=== PATIENT | female | born 1965 | race Caucasian/White ===

== ENCOUNTER 2017-07-05 11:07 | Day surgery (SDC) | payer OTHER ==
[~2017-07-05] VITALS: Ht 166.4 cm; Wt 119.7 kg
[~2017-07-05 11:07] MED LIST: AMARYL4 MG PO; FOLIC ACID1 MG PO; LASIX40 MG PO; LEVEMIR FL100 UNIT/1 SC; LEVOXYL88 MCG PO; LORATADINE10 M2 PO; LORCET HD 10-31 EACH PO; OMEPRAZOLE20 M2 PO; TRAZODONE HCL100 MG PO; VITAMIN D31000 UNI2 PO; XANAX2 MG PO; [UNRECOGNIZED DRUG - REMARK]
[2017-07-05 11:38] LABS: HEMATOCRIT 34.1 % (36.0-46.0); MCH 28.9 PG (29.0-34.0); MCHC 31.7 G/DL (30.0-36.0); MCV 91.2 FL (83-99); MEAN PLAT.VOLUME 11.4 uM^3 (9.5-12.4); PLATELET COUNT 240 K/uL (156-360); RBC DIS.WIDTH-CV 12.2 % (11.8-14.6); RBC DIS.WIDTH-SD 40.3 % (39-53); RED BLOOD COUNT 3.74 M/uL (3.80-5.20); WHITE BLOOD COUNT 8.7 K/uL (4.1-10.2)
[2017-07-05 11:47] LABS: CHLORIDE 101 mEq/L (99-109); POTASSIUM 3.4 mEq/L (3.7-5.4); SODIUM 140 mEq/L (136-147)
[2017-07-05 11:50] LABS: ANION GAP 10 MEQ/L (2-14); GLUCOSE 614 mg/dL (70-99)
[2017-07-05 11:52] LABS: GFR ESTIMATE (CALCULATED) 26 mL/min/
[2017-07-05 11:53] LABS: UREA NITROGEN (BUN) 26 mg/dL (9-23)
[2017-07-05 11:59] VITALS: BP 140/80
[2017-07-05 12:50] LABS: POINT-OF-CARE METER ID UU14174212
[2017-07-05 13:26] LABS: GLUCOSE 317 mg/dL (70-99)
[2017-07-05 14:32] LABS: POINT-OF-CARE METER ID UU14174212
[2017-07-05 15:41] LABS: POINT-OF-CARE METER ID UU14174212
[2017-07-05 17:31] LABS: POINT-OF-CARE METER ID UU13113675
[2017-07-05 18:30] VITALS: BP 166/73
[2017-07-05 19:45] VITALS: BP 127/65
[2017-07-07 20:47] LABS: POINT-OF-CARE METER ID UU14174212; POINT-OF-CARE USER ID AHSRSCSLC11
== END 2017-07-05 19:58 | disposition home or self-care (01) ==
LOC: SDC 11:07
PROVIDERS: Anesthesiology; Surgery
DX: I13.2 Hypertensive heart and chronic kidney disease with heart failure and with stage 5 chronic kidney disease, or end stage renal disease (principal); E11.22 Type 2 diabetes mellitus with diabetic chronic kidney disease; N18.5 Chronic kidney disease, stage 5; E11.21 Type 2 diabetes mellitus with diabetic nephropathy; E11.319 Type 2 diabetes mellitus with unspecified diabetic retinopathy without macular edema; Z79.4 Long term (current) use of insulin; I50.9 Heart failure, unspecified; G89.4 Chronic pain syndrome; E03.9 Hypothyroidism, unspecified; K21.9 Gastro-esophageal reflux disease without esophagitis; E66.01 Morbid (severe) obesity due to excess calories; F41.9 Anxiety disorder, unspecified; Z85.43 Personal history of malignant neoplasm of ovary; Z85.810 Personal history of malignant neoplasm of tongue; Z83.3 Family history of diabetes mellitus; Z82.0 Family history of epilepsy and other diseases of the nervous system; Z80.1 Family history of malignant neoplasm of trachea, bronchus and lung; Z88.5 Allergy status to narcotic agent; Z88.6 Allergy status to analgesic agent
CPT/HCPCS: 80048; 82948; 84999; 85027; 93005; J0690; J1170; J1644; J2250; J2720; J3010

== ENCOUNTER 2017-08-02 10:28 | Day surgery (SDC) | payer OTHER ==
[~2017-08-02] VITALS: Ht 165.1 cm; Wt 119.7 kg
[~2017-08-02 10:28] MED LIST changes: +TRULICITY0.75 MG/0. SC
[2017-08-02 11:04] VITALS: BP 143/73
[2017-08-02 11:14] LABS: HEMATOCRIT 33.6 % (36.0-46.0); MCH 28.4 PG (29.0-34.0); MCHC 31.8 G/DL (30.0-36.0); MCV 89.1 FL (83-99); MEAN PLAT.VOLUME 10.8 uM^3 (9.5-12.4); PLATELET COUNT 232 K/uL (156-360); RBC DIS.WIDTH-CV 13.1 % (11.8-14.6); RBC DIS.WIDTH-SD 42.7 % (39-53); RED BLOOD COUNT 3.77 M/uL (3.80-5.20); WHITE BLOOD COUNT 6.8 K/uL (4.1-10.2)
[2017-08-02 11:38] LABS: CHLORIDE 105 mEq/L (99-109); POTASSIUM 3.2 mEq/L (3.7-5.4); SODIUM 144 mEq/L (136-147)
[2017-08-02 11:40] LABS: GLUCOSE 124 mg/dL (70-99)
[2017-08-02 11:42] LABS: ANION GAP 9 MEQ/L (2-14)
[2017-08-02 11:44] LABS: GFR ESTIMATE (CALCULATED) 33 mL/min/
[2017-08-02 11:45] LABS: UREA NITROGEN (BUN) 21 mg/dL (9-23)
[2017-08-02 12:17] LABS: METH RESISTANT S AUREUS PCR NEGATIVE (NEGATIVE)
[2017-08-02 12:21] LABS: PROBE CHECK PASS; SPECIMEN PROCESSING CONTROL PASS
[2017-08-02 16:10] LABS: POINT-OF-CARE METER ID UU13113675
[2017-08-02 17:35] VITALS: BP 129/65
[2017-08-02 18:29] VITALS: BP 126/67
== END 2017-08-02 18:35 | disposition home or self-care (01) ==
LOC: SDC 10:28
PROVIDERS: Surgery
PROC: 03180ZF Bypass Left Brachial Artery to Lower Arm Vein, Open Approach (ICD-10-PCS; principal; 2017-08-02)
DX: E11.22 Type 2 diabetes mellitus with diabetic chronic kidney disease (principal); N18.6 End stage renal disease; Z99.2 Dependence on renal dialysis; Z85.43 Personal history of malignant neoplasm of ovary; Z85.820 Personal history of malignant melanoma of skin; E24.9 Cushing's syndrome, unspecified; E07.9 Disorder of thyroid, unspecified; M81.0 Age-related osteoporosis without current pathological fracture; M19.90 Unspecified osteoarthritis, unspecified site; Z90.49 Acquired absence of other specified parts of digestive tract; Z90.710 Acquired absence of both cervix and uterus
CPT/HCPCS: 80048; 82948; 85027; 87641; 93005; C1768; J0690; J1170; J1644; J2250; J2405; J2720; J3010

== ENCOUNTER 2017-11-28 11:10 | Day surgery (SDC) | payer OTHER ==
[~2017-11-28] VITALS: Ht 165.1 cm; Wt 113.0 kg
[~2017-11-28 11:10] MED LIST changes: +NOVOLOG100 UNIT/1 SC; +PLAVIX75 MG PO; +VOLTAREN 1% GE100 GM TP
== END 2017-11-28 14:00 | disposition home or self-care (01) ==
LOC: CATH 11:10
PROVIDERS: Surgery
DX: T82.858A Stenosis of other vascular prosthetic devices, implants and grafts, initial encounter (principal); E11.22 Type 2 diabetes mellitus with diabetic chronic kidney disease; N18.6 End stage renal disease; Z99.2 Dependence on renal dialysis; Z79.4 Long term (current) use of insulin; I50.9 Heart failure, unspecified; E24.9 Cushing's syndrome, unspecified; Z85.820 Personal history of malignant melanoma of skin; Z85.43 Personal history of malignant neoplasm of ovary; Z79.02 Long term (current) use of antithrombotics/antiplatelets
CPT/HCPCS: 82948; 87641; C1725; C1769; C1874; C1894; J1644; J2250; J3010